=== PATIENT | male | born 1980 | race African-American/Black ===

== ENCOUNTER 2018-03-17 19:57 | Emergency (ER) | payer SELFPAY | END 2018-03-17 21:55 | disposition home or self-care (01) | LOC: ERS 19:57 | DX: F43.9 Reaction to severe stress, unspecified (principal); F41.9 Anxiety disorder, unspecified; F17.210 Nicotine dependence, cigarettes, uncomplicated | CPT/HCPCS: 93005 ==

== ENCOUNTER 2019-07-29 10:01 | Emergency (ER) | payer SELFPAY ==
[2019-07-29] MEDS ORDERED: Ketorolac Tromethamine 30 MG/ML VIAL ONE ×2 (11:39→11:40)
== END 2019-07-29 12:09 | disposition home or self-care (01) ==
LOC: ERS 10:01
DX: M25.531 Pain in right wrist (principal); F41.9 Anxiety disorder, unspecified; F32.9 Major depressive disorder, single episode, unspecified
CPT/HCPCS: 96372; 99283; J1885